=== PATIENT | male | born 1975 | race Two or more races ===

== ENCOUNTER 2017-05-11 13:54 | Emergency (ER) | payer OTHER ==
[2017-05-11 14:03] VITALS: BP 157/93; PULSE 85; TEMP 98.8; BMI 35.4
--- NOTE | 2017-05-11 15:02 | PDOC ---
History of Present Illness - General Chief Complaint: Injury Stated Complaint: INJURY Time Seen by Provider: 05/11/17 14:38 Past History - Past Medical History Allergies/Adverse Reactions: Allergies Allergy/AdvReac Type Severity Reaction Status Date / Time Sulfa (Sulfonamide Allergy Verified 05/11/17 13:57 Antibiotics) Home Medications: Ambulatory Orders Ibuprofen 800 mg PO TID #30 tablet 05/11/17 Tramadol HCl 50 mg PO BID #5 tablet MDD 2 05/11/17 - Suicide/Smoking/Psychosocial Hx Smoking History: Never smoked *Physical Exam - Vital Signs Last Vital Signs Temp Pulse Resp BP Pulse Ox 98.8 F 85 18 157/93 99 05/11/17 13:57 05/11/17 13:57 05/11/17 13:57 05/11/17 13:57 05/11/17 13:57 *DC/Admit/Observation/Transfer Diagnosis at time of Disposition: Leg pain, left, Leg pain, right - Discharge Dispostion Disposition: HOME Condition at time of disposition: Good Admit: No - Patient Instructions Printed Discharge Instructions: DI for Leg Pain Additional Instructions: You had a metal beam fall on your leg. Your x-rays today were negative. Rest, ice, and elevate your legs to help reduce pain. Starting tonight before bed you may take ibuprofen 800mg. Take this three times a day to help reduce swelling. If you have break through pain you may take the Tramadol as prescribed. Follow up with your employee health in one week. Return to the ED if your pain gets worse, if you have worsening numbness or tingling, or any changes in your symptoms. - Post Discharge Activity Forms/Work/School Notes: Back to Work
[2017-05-11] MEDS ORDERED: KETOROLAC TROMETHAMINE 60 MG/2 ML VIAL IM ONE (15:04)
[2017-05-11] MEDS ORDERED: KETOROLAC TROMETHAMINE 60 MG/2 ML VIAL ONE (15:05)
== END 2017-05-11 15:45 | disposition home or self-care (01) ==
LOC: JERFT 13:54
DX: M79.604 Pain in right leg (principal); M79.605 Pain in left leg; W20.1XXA Struck by object due to collapse of building, initial encounter; Y93.H3 Activity, building and construction; Y92.69 Other specified industrial and construction area as the place of occurrence of the external cause; Y99.0 Civilian activity done for income or pay
CPT/HCPCS: 73590-TC-LT; 73590-TC-RT; 73610-TC-RT; 73630-TC-RT; 99281-25